=== PATIENT | male | born 1965 | race Caucasian/White ===

== ENCOUNTER 2017-11-06 09:07 | Emergency (ER) | payer MEDICAID, OTHER, SELFPAY ==
[~2017-11-06] VITALS: Ht 180.3 cm; Wt 90.9 kg
[2017-11-06 09:16] VITALS: BP 153/100
[2017-11-06] MEDS ORDERED: HYDROcodone/APAP 5/325 TABLET PO ONE ×2 (11:00→12:30)
[2017-11-06] MEDS ORDERED: HYDROcodone/APAP 5/325 TABLET ONE ×2 (11:04→12:25)
[2017-11-06] MEDS ORDERED: LIDOCAINE 1%, 10ML ONE (11:26)
[2017-11-06] MEDS ORDERED: LIDOCAINE 1%, 20ML SQ ONE (11:30)
== END 2017-11-06 12:49 | disposition home or self-care (01) ==
LOC: ED 12:40
DX: M25.462 Effusion, left knee (principal); M25.562 Pain in left knee; M25.062 Hemarthrosis, left knee
CPT/HCPCS: 20610; 73564; 99284; J3490